=== PATIENT | female | born 1955 | race Caucasian/White ===

== ENCOUNTER 2025-01-27 22:46 | Emergency (ER) | payer MEDICARE | END 2025-01-28 00:24 | disposition home or self-care (01) | LOC: EDBD 22:46 → ERS 22:46 | DX: S05.11XA Contusion of eyeball and orbital tissues, right eye, initial encounter (principal); H11.31 Conjunctival hemorrhage, right eye; W22.8XXA Striking against or struck by other objects, initial encounter | CPT/HCPCS: 70450; 70486; 72125; 93005 ==